=== PATIENT | female | born 1975 | race Caucasian/White ===

== ENCOUNTER 2018-12-17 13:16 | Outpatient (CLI) | payer OTHER ==
--- NOTE | 2018-12-17 16:30 | NM ---
Radionucleotide hepatobiliary scan and gallbladder ejection fraction HISTORY: Abdominal pain. Nausea vomiting. FINDINGS: Early images show physiologic uptake of radiotracer throughout the hepatic parenchyma. Gall bladder first visible at 9 minutes. Uptake within the small bowel at 17 minutes. After administration of fatty meal, there is progressive excretion of radiotracer from the gallbladde r to the small bowel. Ejection fraction calculated at 64%. IMPRESSION: Normal exam. Normal gallbladder ejection fraction.
== END 2018-12-17 13:17 | disposition home or self-care (01) ==
LOC: NM 13:16
PROVIDERS: ATTEND Internal Medicine
DX: R10.84 Generalized abdominal pain (principal)
CPT/HCPCS: 78227; A9537

== ENCOUNTER 2019-08-08 08:15 | Outpatient (CLI) | payer BC, OTHER ==
--- NOTE | 2019-08-08 09:01 | ULT ---
US Pelvic Transvag W Doppler History: Left ovarian cyst Comparison: Reference is made to CT exam from 2019 Findings: Real-time grayscale, color and spectral analysis of the pelvis was performed transabdominal and transvaginal approach. Right ovary measures 2.4 x 1.8 x 1.8 cm with adequate vascular flow and a small 7 mm cyst. Left ovary measures 1.8 x 1.3 x 1.1 cm adequate vascular flow. Trace free fluid in the pelvis. Uterus measures 6.7 x 3.1 x 4.1 cm. Endometrial thickness is 4 mm. Impression: Unremarkable pelvic exam.
== END 2019-08-08 08:16 | disposition home or self-care (01) ==
LOC: SCSULT 08:15
PROVIDERS: ATTEND Obstetrics & Gynecology
DX: N83.202 Unspecified ovarian cyst, left side (principal)
CPT/HCPCS: 76856

== ENCOUNTER 2022-02-08 07:27 | Day surgery (SDC) | payer BC ==
[2022-02-06 15:58] VITALS: BMI 23.1
[2022-02-08] MEDS ORDERED: Bupivacaine/Epinephrine 0.25% 30 ML VIAL ONE (09:26)
[2022-02-08] MEDS ORDERED: Fentanyl 250 MCG/5 ML VIAL ONE (09:33)
[2022-02-08] MEDS ORDERED: cefOXitin 2 GM VIAL ONE (09:44)
[2022-02-08] MEDS ORDERED: Sodium Chloride 0.9% 100 ML ONE (09:44)
[2022-02-08] MEDS ORDERED: PROPOFOL 200 MG/20 ML VIAL ONE (10:00)
[2022-02-08] MEDS ORDERED: Ondansetron PF 4 MG/2 ML Vial ONE (10:00)
[2022-02-08] MEDS ORDERED: Succinylcholine Chloride 100 MG/5 ML SYRINGE FS ONE (10:00)
[2022-02-08] MEDS ORDERED: Lidocaine 1% PF 5 ML VIAL ONE (10:00)
[2022-02-08] MEDS ORDERED: Ketorolac Tromethamine 30 MG/ML VIAL ONE (10:00)
[2022-02-08] MEDS ORDERED: Dexamethasone 20 MG/5 ML VIAL ONE (10:00)
[2022-02-08] MEDS ORDERED: Rocuronium Bromide 10 MG/ML (10ML VIAL) ONE (10:00)
[2022-02-08] MEDS ORDERED: HYDROcodone/Acetaminophen 5/325 mg Tablet ONE (12:54)
== END 2022-02-08 13:15 | disposition home or self-care (01) ==
LOC: SDC 07:27
PROVIDERS: ATTEND Surgery
PROC: 0FT44ZZ Resection of Gallbladder, Percutaneous Endoscopic Approach (ICD-10-PCS; principal; 2022-02-08)
DX: K80.10 Calculus of gallbladder with chronic cholecystitis without obstruction (principal); Z91.040 Latex allergy status
CPT/HCPCS: 88304; C1889; J0694; J1100; J1885; J2405; J2704; J3010; J3490

== ENCOUNTER 2022-04-21 09:53 | Outpatient (CLI) | payer BC | END 2022-04-21 09:54 | disposition home or self-care (01) | LOC: BICRAD 09:53 | PROVIDERS: ATTEND Internal Medicine Gastroenterology | DX: R19.7 Diarrhea, unspecified (principal); K21.9 Gastro-esophageal reflux disease without esophagitis; R11.2 Nausea with vomiting, unspecified; R63.4 Abnormal weight loss | CPT/HCPCS: 74018 ==